=== PATIENT | male | born 1970 | race Caucasian/White ===

== ENCOUNTER 2017-07-18 12:30 | Emergency (ER) | payer SELFPAY ==
[2017-07-18] MEDS ORDERED: TORAdol 30 mg Injection IM ONE (12:53)
[2017-07-18] MEDS ORDERED: Phenergan 25 MG INJ IM ONE (12:54)
[2017-07-18] MEDS ORDERED: MORPHINE SULFATE 4 MG INJ IM ONE (12:54)
[2017-07-18] MEDS ORDERED: Phenergan 25 MG INJ ONE (12:59)
[2017-07-18] MEDS ORDERED: TORAdol 30 mg Injection ONE (12:59)
[2017-07-18] MEDS ORDERED: MORPHINE SULFATE 4 MG INJ ONE (12:59)
--- NOTE | 2017-07-18 13:05 | ERPHSYRPT ---
- History of Present Illness Time Seen by Provider: 07/18/17 12:40 Historian: patient Exam Limitations: clinical condition Patient Subjective Stated Complaint: pain to left lateral rib area and into left side of back since last night. 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 Triage Nursing Assessment: ambulated to room without difficulty. skin w/d, color normal, resp easy. tender left lateral ribs. no swelling noted Physician History: PATIENT COMPLAINS OF PAIN OVER THE LEFT LATERAL POSTERIOR RIBS ADJACENT TO HIS ARM PIT ONSET WHILE PUSHING DOWN AND LIFTING A LEVER OF SEMI-DUMP TRUCK. NOW HAS PAIN UPON LIFTING HIS LEFT ARM. DENIES DYSPNEA, DIAPHORESIS OR PALPITATIONS. Timing/Duration: yesterday Activities at Onset: activity Quality: sharpness Location: other (LEFT LATERAL RIBS AND BACK) Chest Pain Radiation: no radiation Severity of Pain-Max: moderate Severity of Pain-Current: moderate Modifying Factors: Improves With: change in position, other (AND MOVEMENT OF ARM ) Associated Symptoms: other (PAIN UPON MOTION OF TORSO AND MOTION OF LEFT ARM) Prior Chest Pain/Cardiac Workup: no prior chest pain Nitro Today/Relief: no nitro taken today Aspirin Treatment Today: no aspirin today Allergies/Adverse Reactions: Penicillins Allergy (Severe, Verified 07/18/17 12:49) Difficulty Breathing Hx Tetanus, Diphtheria Vaccination/Date Given: Yes Hx Influenza Vaccination/Date Given: No Hx Pneumococcal Vaccination/Date Given: No - Review of Systems Constitutional: No Fever, No Chills Eyes: No Symptoms Ears, Nose, & Throat: No Symptoms Respiratory: No Cough, No Dyspnea Cardiac: Chest Pain Abdominal/Gastrointestinal: No Abdominal Pain, No Nausea, No Vomiting, No Diarrhea Genitourinary Symptoms: No Dysuria Musculoskeletal: No Symptoms, No Back Pain, No Neck Pain - Past Medical History Pertinent Past Medical History: Yes Neurological History: Seizures ENT History: No Pertinent History Cardiac History: Hypertension Respiratory History: No Pertinent History Endocrine Medical History: No Pertinent History Musculoskeletal History: Other GI Medical History: GERD History: No Pertinent History Psycho-Social History: Anxiety, Bipolar, Depression, Other Male Reproductive Disorders: No Pertinent History Other Medical History: lt thumb, 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 - Past Surgical History Past Surgical History: Yes Neuro Surgical History: No Pertinent History Cardiac: No Pertinent History Respiratory: No Pertinent History Gastrointestinal: No Pertinent History Genitourinary: No Pertinent History Musculoskeletal: Amputation Male Surgical History: No Pertinent History Other Surgical History: LEFT HAND PARTIAL AMPUTATION - Social History Smoking Status: Never smoker How long have you smoked: 30 Exposure to second hand smoke: No Drug Use: none Patient Lives Alone: No - Nursing Vital Signs Nursing Vital Signs: Initial Vital Signs Temperature 97.5 F 07/18/17 12:38 Pulse Rate 53 L 07/18/17 12:38 Respiratory Rate 16 07/18/17 12:38 Blood Pressure 128/63 07/18/17 12:38 O2 Sat by Pulse Oximetry 98 07/18/17 12:38 Pain Scale Pain Intensity [Left Back] 8 Pain Intensity 8 - Physical Exam General Appearance: no apparent distress, alert Eye Exam: PERRL/EOMI, eyes nml inspection Ears, Nose, Throat Exam: normal ENT inspection Neck Exam: normal inspection, non-tender, supple, full range of motion Respiratory Exam: normal breath sounds, chest tenderness (MARKED TENDERNESS LEFT LATERAL TO POSTERIOR RIBS 4TH TO 8TH ), lungs clear, other (ONSET OF CHEST WALL PAIN UPON MOTION OF LEFT ARM), No respiratory distress Cardiovascular Exam: regular rate/rhythm Back Exam: normal inspection, No CVA tenderness, No vertebral tenderness Extremity Exam: normal inspection, normal range of motion SpO2: 98 Oxygen Delivery: Room Air - Radiology Exams Chest X-ray Interpretation: Discussed w/ radiologist, Negative Ordered Tests: Active Orders 24 hr Category Date Time Status CHEST 2 VIEWS (PA AND LAT) Stat Exams 07/18/17 12:52 Completed Medication Summary Discontinued Medications Generic Name Dose Route Start Last Admin Trade Name Morena PRN Reason Stop Dose Admin Ketorolac Tromethamine 60 mg 07/18/17 12:53 07/18/17 13:07 Toradol 30 Mg Injection IM 07/18/17 12:54 60 mg STAT ONE Administration Ketorolac Tromethamine Confirm 07/18/17 12:59 Toradol 30 Mg Injection Administered 07/18/17 13:00 Dose 60 mg .ROUTE .STK-MED ONE Morphine Sulfate 4 mg 07/18/17 12:54 07/18/17 13:08 Morphine Sulfate 4 Mg Inj IM 07/18/17 12:55 4 mg STAT ONE Administration Morphine Sulfate Confirm 07/18/17 12:59 Morphine Sulfate 4 Mg Inj Administered 07/18/17 13:00 Dose 4 mg .ROUTE .STK-MED ONE Promethazine HCl 25 mg 07/18/17 12:54 07/18/17 13:07 Phenergan 25 Mg Inj IM 07/18/17 12:55 25 mg STAT ONE Administration Promethazine HCl Confirm 07/18/17 12:59 Phenergan 25 Mg Inj Administered 07/18/17 13:00 Dose 25 mg .ROUTE .STK-MED ONE - Progress Progress: improved Progress Note: 07/18/17 13:09 TORADOL 60MG IM/ MORPHINE 4MG/ PHENERGAN 25MG IM Counseled pt/family regarding: lab results, rad results - Departure Time of Disposition: 13:40 Departure Disposition: Home Clinical Impression: LEFT CHEST WALL STRAIN Condition: Stable Critical Care Time: No Referrals: STACEY GARRISON MD [Primary Care Provider] - Additional Instructions: REMAIN OFF WORK UNTIL 07/22/2017. NORFLEX 100MG EVERY 12 HOURS FOR MUSCLE SPASM AND TORADOL 10MG EVERY 6 HOURS NEEDED FOR PAIN. CONSULT YOUR PRIMARY CARE PROVIDER FOR EVALUATION IN 1 WEEK. Prescriptions: Ketorolac Tromethamine [Toradol] 10 mg PO Q6HPRN PRN #20 tablet PRN Reason: Pain Orphenadrine Citrate 100 mg [Norflex 100 MG Tablet] 100 mg PO BID PRN #10 tab PRN Reason: Muscle Spasms
--- NOTE | 2017-07-18 13:15 | XRAY ---
Indication: Left chest wall pain. No known injury. Comparison: January 12, 2016. PA/lateral chest again hyperinflated with scattered calcified granulomas. Remaining lungs clear. Heart is not enlarged. Vascularity normal. Bony thorax intact again with mild degenerative changes. Impression: Stable nonacute chest with chronic features.
[2017-07-18 13:53] VITALS: BP 123/82; PULSE 79; O2SAT 97
== END 2017-07-18 13:53 | disposition home or self-care (01) ==
LOC: ED 12:30
DX: S29.011A Strain of muscle and tendon of front wall of thorax, initial encounter (principal); X50.0XXA Overexertion from strenuous movement or load, initial encounter
CPT/HCPCS: 71046; 96372; 99284; J1885; J2270; J2550

== ENCOUNTER 2017-12-08 00:20 | Observation (INO) | payer SELFPAY ==
[2017-12-08] MEDS ORDERED: Nitrostat 0.4 MG (ED) SL ONE ×2 (00:53→00:59)
[2017-12-08] MEDS ORDERED: BABY ASPIRIN 81 MG CHEW PO ONE (00:53)
[2017-12-08] MEDS ORDERED: BABY ASPIRIN 81 MG CHEW ONE (00:59)
--- NOTE | 2017-12-08 00:59 | ERPHSYRPT ---
- History of Present Illness Time Seen by Provider: 12/08/17 00:53 Historian: patient, family Exam Limitations: no limitations Patient Subjective Stated Complaint: pt states he has been having dizziness and pain in his lt shoulder radiating into his back. rates pain at 5/10 Triage Nursing Assessment: pt alert and oriented. answers questions approp. pt ambulatory with steady gait noted. respirations nonlabored with lungs cta. ski pink warm and dry. pupils equal and reactive. bilat upper and lower ext strength wnl and equal. no facial droop noted. Physician History: dizziness and chest pain radiating to left arm - but also with reproducible pain when palpating these areas; prior hx CT angio 10 years ago not requiring stneting but did get NTG just in case afterwards. positive family hx - neg stress test 4 years ago Timing/Duration: today Activities at Onset: activity Quality: fullness, pressure, tightness Location: substernal Chest Pain Radiation: arm Severity of Pain-Max: moderate Severity of Pain-Current: moderate Modifying Factors: Improves With: nothing Associated Symptoms: headache, dizziness Prior Chest Pain/Cardiac Workup: stress test (4 years ago) Nitro Today/Relief: 0.4 mg x 1, provided by ED, no relief Aspirin Treatment Today: 81 mg x 4, provided by ED Allergies/Adverse Reactions: Penicillins Allergy (Severe, Verified 12/08/17 00:38) Difficulty Breathing Home Medications: No Reportable Medications [No Reported Medications] 12/08/17 [History] Hx Tetanus, Diphtheria Vaccination/Date Given: Yes Hx Influenza Vaccination/Date Given: No Hx Pneumococcal Vaccination/Date Given: No Immunizations Up to Date: Yes - Review of Systems Constitutional: No Fever, No Chills Eyes: No Symptoms Ears, Nose, & Throat: No Symptoms Respiratory: No Cough, No Dyspnea Cardiac: Chest Pain, No Edema, No Syncope Abdominal/Gastrointestinal: No Abdominal Pain, No Nausea, No Vomiting, No Diarrhea Genitourinary Symptoms: No Dysuria Musculoskeletal: No Back Pain, No Neck Pain Skin: No Rash Neurological: No Dizziness, No Focal Weakness, No Sensory Changes Psychological: No Symptoms Endocrine: No Symptoms All Other Systems: Reviewed and Negative - Past Medical History Pertinent Past Medical History: Yes Neurological History: Seizures ENT History: No Pertinent History Cardiac History: Hypertension Respiratory History: No Pertinent History Endocrine Medical History: No Pertinent History Musculoskeletal History: Other GI Medical History: GERD History: No Pertinent History Psycho-Social History: Anxiety, Bipolar, Depression, Other Male Reproductive Disorders: No Pertinent History Other Medical History: lt thumb, 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 - Past Surgical History Past Surgical History: Yes Neuro Surgical History: No Pertinent History Cardiac: No Pertinent History Respiratory: No Pertinent History Gastrointestinal: No Pertinent History Genitourinary: No Pertinent History Musculoskeletal: Amputation Male Surgical History: No Pertinent History Other Surgical History: LEFT HAND PARTIAL AMPUTATION - Social History Smoking Status: Never smoker How long have you smoked: 30 Exposure to second hand smoke: No Drug Use: none Patient Lives Alone: No - Nursing Vital Signs Nursing Vital Signs: Initial Vital Signs Temperature 97.7 F 12/08/17 00:25 Pulse Rate 50 L 12/08/17 00:25 Respiratory Rate 18 12/08/17 00:25 Blood Pressure 144/88 12/08/17 00:25 O2 Sat by Pulse Oximetry 100 12/08/17 00:25 Pain Scale Pain Intensity 5 - Physical Exam General Appearance: no apparent distress, alert Eye Exam: PERRL/EOMI, eyes nml inspection Ears, Nose, Throat Exam: normal ENT inspection, moist mucous membranes Neck Exam: normal inspection, non-tender, supple, full range of motion Respiratory Exam: normal breath sounds, lungs clear, No respiratory distress Cardiovascular Exam: regular rate/rhythm, normal heart sounds Gastrointestinal/Abdomen Exam: soft, No tenderness, No mass Back Exam: normal inspection, No CVA tenderness, No vertebral tenderness Extremity Exam: normal inspection, normal range of motion Neurologic Exam: alert, oriented x 3, cooperative, normal mood/affect, sensation nml, No motor deficits Skin Exam: normal color, warm, dry SpO2 Interpretation: normal SpO2: 100 Oxygen Delivery: Room Air - Course Nursing assessment & vital signs reviewed: Yes EKG Interpreted by Me: Sinus Lionel, NORMAL AXIS, NORMAL INTERVALS, NORMAL QRS, Non-specific ST Changes - Radiology Exams Chest X-ray Interpretation: Reviewed by me, Other (appears negative) Ordered Tests: Active Orders 24 hr Category Date Time Status Cashier Manager STAT Care 12/08/17 00:55 Active EKG-ER Only STAT Care 12/08/17 00:53 Active IV Insertion STAT Care 12/08/17 00:53 Active Pulse Oximetry (ED) STAT Care 12/08/17 00:53 Active CHEST 1 VIEW (PORTABLE) Stat Exams 12/08/17 00:54 Taken AMYLASE Stat Lab 12/08/17 01:00 Results CBC W DIFF Stat Lab 12/08/17 01:00 Completed CK-Creatinine Phosphokinase Stat Lab 12/08/17 01:00 Results CMP Stat Lab 12/08/17 01:00 Results LIPASE Stat Lab 12/08/17 01:00 Results Lactic Acid Stat Lab 12/08/17 00:53 Completed NT PRO BNP Stat Lab 12/08/17 01:00 Results TROPONIN Q3H Lab 12/08/17 01:00 Completed TROPONIN Q3H Lab 12/08/17 04:00 Ordered TROPONIN Q3H Lab 12/08/17 07:00 Ordered TROPONIN Q3H Lab 12/08/17 10:00 Ordered TROPONIN Q3H Lab 12/08/17 13:00 Ordered VENOUS BLOOD GAS Stat Lab 12/08/17 00:53 Completed Medication Summary Generic Name Dose Route Start Last Admin Trade Name Freq PRN Reason Stop Dose Admin Sodium Chloride 1,000 mls @ 100 mls/hr 12/08/17 01:00 12/08/17 01:10 Sodium Chloride 0.9% 1000 Ml IV 01/07/18 00:59 100 mls/hr .Q10H VILLA Administration Discontinued Medications Generic Name Dose Route Start Last Admin Trade Name Freq PRN Reason Stop Dose Admin Aspirin 324 mg 12/08/17 00:53 12/08/17 01:09 Baby Aspirin 81 Mg Chew PO 12/08/17 00:54 324 mg STAT ONE Administration Aspirin Confirm 12/08/17 00:59 Baby Aspirin 81 Mg Chew Administered 12/08/17 01:00 Dose 324 mg .ROUTE .STK-MED ONE Nitroglycerin 0.4 mg 12/08/17 00:53 12/08/17 01:10 Nitrostat 0.4 Mg (Ed) SL 12/08/17 00:54 0.4 mg STAT ONE Administration Nitroglycerin Confirm 12/08/17 00:59 Nitrostat 0.4 Mg (Ed) Administered 12/08/17 01:00 Dose 0.4 mg SL .STK-MED ONE Lab/Rad Data: Laboratory Result Diagrams 12/08/17 01:00 12/08/17 01:00 Laboratory Results 12/08/17 12/08/17 12/08/17 Range/Units 01:00 01:00 01:00 WBC 7.1 (4.0-10.5) K/mm3 RBC 5.39 (4.1-5.6) M/mm3 Hgb 16.6 (12.5-18.0) gm/dl Hct 46.3 (42-50) % MCV 85.9 (78-100) fl MCH 30.8 (26-32) pg MCHC 35.9 (32-36) g/dl RDW 12.6 (11.5-14.0) % Plt Count 243 (150-450) K/mm3 MPV 11.8 H (6-9.5) fl Gran % 51.0 (36.0-66.0) % Eos # (Auto) 0.09 (0-0.5) Absolute Lymphs (auto) 2.90 (1.0-4.6) Absolute Monos (auto) 0.47 (0.0-1.3) Lymphocytes % 40.8 (24.0-44.0) % Monocytes % 6.6 (0.0-12.0) % Eosinophils % 1.3 (0.00-5.0) % Basophils % 0.3 (0.0-0.4) % Absolute Granulocytes 3.62 (1.4-6.9) Basophils # 0.02 (0-0.4) pO2/FiO2 Ratio % VBG pH (7.32-7.42) VBG pCO2 at Pat Temp (42-55) mm/Hg VBG pO2 at Pat Temp (25-40) mm/Hg VBG HCO3 (22-28) meq/L VBG O2 Sat (Earnestine) (95-100) VBG Base Excess (-2.0-2.0) VBG Hemoglobin VBG Carboxyhemoglobin (0.0-6.9) % T HGB POC Potassium (3.5-5.1) Sodium 142 (137-145) mmol/L Potassium 4.0 (3.5-5.1) mmol/L Chloride 103 (98-107) mmol/L Carbon Dioxide 26 (22-30) mmol/L Anion Gap 15.7 H (5-15) MEQ/L BUN 14 (9-20) mg/dL Creatinine 0.96 (0.66-1.25) mg/dL Estimated GFR > 60.0 ML/MIN Glucose 97 (74-106) mg/dL Lactic Acid (0.4-2.0) Calcium 9.7 (8.4-10.2) mg/dL Total Bilirubin 0.70 (0.2-1.3) mg/dL AST 24 (17-59) U/L ALT 16 (0-50) U/L Alkaline Phosphatase 73 (38-126) U/L Creatine Kinase 76 (55-170) U/L Troponin I < 0.012 (0.000-0.034) ng/mL NT-Pro-B Natriuret Pep Pending Serum Total Protein 7.8 (6.3-8.2) g/dL Albumin 4.7 (3.5-5.0) g/dL Amylase 77 (30-110) U/L Lipase 71 (23-300) U/L 12/08/17 12/08/17 Range/Units 00:53 00:53 WBC (4.0-10.5) K/mm3 RBC (4.1-5.6) M/mm3 Hgb (12.5-18.0) gm/dl Hct (42-50) % MCV (78-100) fl MCH (26-32) pg MCHC (32-36) g/dl RDW (11.5-14.0) % Plt Count (150-450) K/mm3 MPV (6-9.5) fl Gran % (36.0-66.0) % Eos # (Auto) (0-0.5) Absolute Lymphs (auto) (1.0-4.6) Absolute Monos (auto) (0.0-1.3) Lymphocytes % (24.0-44.0) % Monocytes % (0.0-12.0) % Eosinophils % (0.00-5.0) % Basophils % (0.0-0.4) % Absolute Granulocytes (1.4-6.9) Basophils # (0-0.4) pO2/FiO2 Ratio 21.0 % VBG pH 7.34 (7.32-7.42) VBG pCO2 at Pat Temp 55 (42-55) mm/Hg VBG pO2 at Pat Temp 24 L (25-40) mm/Hg VBG HCO3 29.7 H* (22-28) meq/L VBG O2 Sat (Earnestine) 43.9 L (95-100) VBG Base Excess 2.3 H (-2.0-2.0) VBG Hemoglobin 16.9 VBG Carboxyhemoglobin 2.5 (0.0-6.9) % T HGB POC Potassium 3.8 (3.5-5.1) Sodium (137-145) mmol/L Potassium (3.5-5.1) mmol/L Chloride (98-107) mmol/L Carbon Dioxide (22-30) mmol/L Anion Gap (5-15) MEQ/L BUN (9-20) mg/dL Creatinine (0.66-1.25) mg/dL Estimated GFR ML/MIN Glucose (74-106) mg/dL Lactic Acid 1.2 (0.4-2.0) Calcium (8.4-10.2) mg/dL Total Bilirubin (0.2-1.3) mg/dL AST (17-59) U/L ALT (0-50) U/L Alkaline Phosphatase (38-126) U/L Creatine Kinase (55-170) U/L Troponin I (0.000-0.034) ng/mL NT-Pro-B Natriuret Pep Serum Total Protein (6.3-8.2) g/dL Albumin (3.5-5.0) g/dL Amylase (30-110) U/L Lipase (23-300) U/L - Progress Progress: re-examined, unchanged Air Movement: good Progress Note: 12/08/17 02:32 discussed with pt and Dr bravo covering for Dr Garrison and all agree best for obs and following Trops Blood Culture(s) Obtained: No Antibiotics given: No Discussed with : Other (Dr Bravo) Will see patient in: hospital (observation) Counseled pt/family regarding: lab results, diagnosis, need for follow-up, rad results - Departure Time of Disposition: 02:33 Departure Disposition: Observation Clinical Impression: Chest pain Condition: Good Critical Care Time: No Referrals: STACEY GARRISON MD [Primary Care Provider] -
[2017-12-08] MEDS ORDERED: Sodium Chloride 0.9% 1000 ML 1,000 ML IV SCH (01:00)
[2017-12-08 01:11] LABS: BASOPHIL % 0.3 % (0.0-0.4); Basophil (Absolute #) 0.02 (0-0.4); Eosinophil % 1.3 % (0.00-5.0); Eosinophil (Absolute #) 0.09 (0-0.5); Granulocyte Absolute (ANC) 3.62 (1.4-6.9); Hematocrit 46.3 % (42-50); Hemoglobin 16.6 gm/dl (12.5-18.0); Lymphocytes % 40.8 % (24.0-44.0); Mean Cell Volume 85.9 fl (78-100); Mean Corpuscular Hemoglobin 30.8 pg (26-32); Mean Corpuscular Hgb Concent. 35.9 g/dl (32-36); Mean Platelet Volume 11.8 fl (6-9.5); Monocyte (Absolute #) 0.47 (0.0-1.3); Monocytes % 6.6 % (0.0-12.0); Platelet Count 243 K/mm3 (150-450); Red Blood Count 5.39 M/mm3 (4.1-5.6); Red Cell Distribution Width 12.6 % (11.5-14.0); White Blood Count 7.1 K/mm3 (4.0-10.5)
[2017-12-08 01:17] LABS: VBG BASE EXCESS 2.3 (-2.0-2.0); VBG CARBOXYHEMOGLOBIN 2.5 % T HGB (0.0-6.9); VBG HCO3- 29.7 meq/L (22-28); VBG HEMOGLOBIN 16.9; VBG O2 SATURATION 43.9 (95-100); VBG POTASSIUM 3.8 (3.5-5.1); VBG pH 7.34 (7.32-7.42)
[2017-12-08 01:32] LABS: ALBUMIN 4.7 g/dL (3.5-5.0); ALKALINE PHOSPHATASE 73 U/L (38-126); AMYLASE 77 U/L (30-110); ANION GAP 15.7 MEQ/L (5-15); BLOOD UREA NITROGEN 14 mg/dL (9-20); CHLORIDE 103 mmol/L (98-107); CK-Creatinine Phosphokinase 76 U/L (55-170); Calcium 9.7 mg/dL (8.4-10.2); Carbon Dioxide 26 mmol/L (22-30); Creatinine 1 0.96 mg/dL (0.66-1.25); Glucose 97 mg/dL (74-106); LIPASE 71 U/L (23-300); SGOT/AST 24 U/L (17-59); SGPT/ALT 16 U/L (0-50); SODIUM 142 mmol/L (137-145); Total Protein 7.8 g/dL (6.3-8.2)
[2017-12-08 02:33] LABS: NT PRO BNP 35.1 pg/mL (0-450)
[2017-12-08] MEDS ORDERED: NovoLIN R SQ PRN (03:15)
[2017-12-08] MEDS ORDERED: Senokot-S Tablet PO PRN (03:15)
[2017-12-08] MEDS ORDERED: MILK OF MAGNESIA 30 ML PO PRN (03:15)
[2017-12-08] MEDS ORDERED: MAALOX ES 30 ML UNIT DOSE PO PRN (03:15)
[2017-12-08] MEDS ORDERED: Zofran 4 MG/2 ML VIAL IV PRN (03:15)
[2017-12-08] MEDS ORDERED: TYLENOL 325 MG PO PRN (03:15)
[2017-12-08 04:26] LABS: Risk Ratio 4.4
--- NOTE | 2017-12-08 07:09 | XRAY ---
Indication: Chest pain and arm numbness. Comparison: July 18, 2017. Portable apical lordotic chest remains clear again with incidental calcified granulomas. Heart is not enlarged. Bony thorax intact again with mild degenerative changes. Impression: Stable nonacute chest with chronic features.
[2017-12-08] MEDS ORDERED: Ecotrin 325 MG PO SCH (10:00)
[2017-12-08 11:53] VITALS: BP 117/72; PULSE 45; O2SAT 98
--- NOTE | 2017-12-10 12:45 | HP ---
HISTORY OF PRESENT ILLNESS: A 47 year-old individual reportedly hospitalized with chief complaint of having dizziness at work place. He has no major medical history. He is not seeing a physician regularly. He denies any major health issues in the past. He does not take any medicine. 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 PAST MEDICAL HISTORY: Nothing significant. FAMILY HISTORY: Noncontributory. SOCIAL HISTORY: He denies smoking. Occasional alcohol. He does chew tobacco. REVIEW OF SYSTEMS: He denies any major health issues. He does have history of bradycardia in the past. No chest pain. No shortness of breath. He used to be a wrestler in the past. He denies any major health issues. GI: No constipation or diarrhea. EXTREMITIES: No edema. NEUROLOGIC: Intact. PHYSICAL EXAMINATION: Appears comfortable, not in any acute distress. His vital signs initial blood pressure 144/88, pulse 100, respiratory rate 16, temperature afebrile 97.7F. HEENT: Pupils reactive. NECK: No JVD. No thyromegaly. CHEST: Good air entry bilaterally. HEART: Normal. ABDOMEN: Soft, nontender. Bowel sounds present. EXTREMITIES: No edema. Pedal pulses present. NEUROLOGIC: Alert, awake with no focal deficit. LAB DATA AND TESTS: Troponin was negative. White blood cell 7.1, hemoglobin 16.6 and rest of the CBC was essentially negative. Sodium 142, potassium 4, chloride 103, BUN 14, creatinine 0.9. Glomerular filtration rate 1160. Glucose 97. Calcium 9.7. AST 24 ALT 16, alkaline phosphatase 73. CPK 76. BNP 35. Total protein 7.8. Albumin 4.7. Lactic acid 1.2. Troponins all sets were negative. Cholesterol was essentially okay at 154 with LDL of 99. CBC 7.34, pCO2 55. Venous sampling by ABG. Chest x-ray was negative. The patient appears clinically fine with slight episode of bradycardia initially that has straightened out at this time. ASSESSMENT AND PLAN: Dizziness, bradycardia advised some STAT CSF if troponins are negative. The patient will be followed for 24 hours to rule out, will be discharged home for outpatient follow up depending on thyroid results if need for any thyroid etiology for the patient's hypothyroidism. Therefore the patient's bradycardia if needed further testing will be done.
--- NOTE | 2017-12-10 12:47 | DS ---
DISCHARGE DIAGNOSES: 1) DIZZINESS. 2) BRADYCARDIA HAS BEEN KNOWN IN THE PAST OTHERWISE HAS BEEN CLINICALLY INSIGNIFICANT. NO OTHER CLINICAL SIGNIFICANT FINDING. HISTORY: The patient comes to hospital with chief complaint of having some dizziness and left side shoulder pain. HOSPITAL COURSE: The patient during the course of hospitalization was ruled out for myocardial infarction. He had some bradycardia which seems to have improved. No other deformities were found. The patient walked out in the hallway. All troponins were negative. Will get a thyroid test and if negative will be discharged home for outpatient follow up. The patient does need to follow with primary care physician before going back to work. Outpatient follow up is advised.
== END 2017-12-08 13:45 | disposition home or self-care (01) ==
LOC: ED 00:20 → MED SURG 03:05
PROVIDERS: ADMIT General Practice; ATTEND General Practice
DX: R42 Dizziness and giddiness (principal); R00.1 Bradycardia, unspecified
CPT/HCPCS: 36000; 36415; 71045; 80053; 80061; 82150; 82550; 82805; 83605; 83690; 83721; 83880; 84443; 84484; 85025; 93005; 93041; 93268; 96360; 96361; 99285; A9270-GY; G0378

== ENCOUNTER 2024-03-30 18:20 | Emergency (ER) | payer SELFPAY ==
--- NOTE | 2024-03-30 18:38 | ERPHSYRPT ---
- History of Present Illness Time Seen by Provider: 03/30/24 18:38 Source: patient Exam Limitations: no limitations Physician History: This is a 53-year-old white male patient of Dr. Garrison who excellently dropped a propane tank on his right foot at approximately 7:30 in the morning. Patient continued walking on it throughout the day and the pain became worse. Pain is primarily in the area of the first toe of the right foot. Occurred: this morning Quality: constant, aching, throbbing Severity of Pain-Max: moderate Severity of Pain-Current: moderate Lower Extremities Pain: foot: right, 1st toe: right Modifying Factors: Improves With: movement Associated Symptoms: other (Can bear weight but hurts to do so) Allergies/Adverse Reactions: Penicillins Allergy (Severe, Verified 03/30/24 18:55) Difficulty Breathing Hx Tetanus, Diphtheria Vaccination/Date Given: Yes Hx Influenza Vaccination/Date Given: No Hx Pneumococcal Vaccination/Date Given: No Travel Risk - International Travel Have you traveled outside of the country in past 3 weeks: No - Emerging Infectious Disease Are you exhibiting symptoms associated with any current EIDs: No - Review of Systems Constitutional: No Symptoms Eyes: No Symptoms Ears, Nose, & Throat: No Symptoms Respiratory: No Symptoms Cardiac: No Symptoms Abdominal/Gastrointestinal: No Symptoms Genitourinary Symptoms: No Symptoms Musculoskeletal: Injury (Right foot/first toe) Skin: No Symptoms Neurological: No Symptoms Psychological: No Symptoms Endocrine: No Symptoms Hematologic/Lymphatic: No Symptoms Immunological/Allergic: No Symptoms All Other Systems: Reviewed and Negative - Past Medical History Pertinent Past Medical History: Yes Neurological History: Seizures ENT History: No Pertinent History Cardiac History: Hypertension Respiratory History: No Pertinent History Endocrine Medical History: No Pertinent History Musculoskeletal History: Other GI Medical History: GERD History: No Pertinent History Psycho-Social History: Anxiety, Bipolar, Depression Male Reproductive Disorders: No Pertinent History Other Medical History: lt thumb, 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 - Past Surgical History Past Surgical History: Yes Neuro Surgical History: No Pertinent History Cardiac: No Pertinent History Respiratory: No Pertinent History Gastrointestinal: No Pertinent History Genitourinary: No Pertinent History Musculoskeletal: Amputation Male Surgical History: No Pertinent History Other Surgical History: LEFT HAND PARTIAL AMPUTATION - Social History Smoking Status: Never smoker How long have you smoked: 30 Exposure to second hand smoke: No Drug Use: none Patient Lives Alone: No - Nursing Vital Signs Nursing Vital Signs: Initial Vital Signs Temperature 98.2 F 03/30/24 18:50 Pulse Rate 70 03/30/24 18:50 Respiratory Rate 16 03/30/24 18:50 Blood Pressure 155/79 03/30/24 18:50 O2 Sat by Pulse Oximetry 99 03/30/24 18:50 Pain Scale Pain Intensity 6 - Physical Exam General Appearance: no apparent distress, alert, anxiety Eyes, Ears, Nose, Throat Exam: normal ENT inspection, moist mucous membranes Neck Exam: normal inspection, non-tender, supple, full range of motion Cardiovascular/Respiratory Exam: chest non-tender, no respiratory distress Gastrointestinal/Abdominal Exam: non-tender Back Exam: normal inspection, normal range of motion, No CVA tenderness, No vertebral tenderness Hips Exam: bilateral: non-tender, normal inspection, normal range of motion, no evidence of injury Legs Exam: bilateral leg: non-tender, normal inspection, normal range of motion, no evidence of injury Knees Exam: bilateral knee: non-tender, normal inspection, normal range of motion, no evidence of injury Ankle Exam: bilateral ankle: non-tender, normal inspection, normal range of motion, no evidence of injury Foot Exam: right foot: bone tenderness (First toe), soft tissue tenderness (First toe), swelling (First toe), left foot: non-tender, normal inspection, normal range of motion, no evidence of injury Neuro/Tendon Exam: normal sensation, normal motor functions, normal tendon functions, responds to pain, no evidence tendon injury Mental Status Exam: alert, oriented x 3, cooperative Skin Exam: normal color, warm, dry SpO2 Interpretation: normal O2 Delivery: Room Air - Course Nursing assessment & vital signs reviewed: Yes Ordered Tests: Active Orders 24 hr Category Date Time Status Splint STAT Care 03/30/24 19:38 Active FOOT (MINIMUM 3 VIEWS) Stat Exams 03/30/24 18:56 Taken Medication Summary Discontinued Medications Generic Name Dose Route Start Last Admin Trade Name Morena PRN Reason Stop Dose Admin Ibuprofen 600 mg 03/30/24 19:37 Ibuprofen 600 Mg Tablet PO 03/30/24 19:38 STAT ONE Oxycodone/Acetaminophen 1 tab 03/30/24 19:37 Oxycodone Hcl/Apap 5 Mg/325 Mg Tablet PO 03/30/24 19:38 STAT STA Oxycodone/Acetaminophen 2 tab 03/30/24 19:39 Oxycodone Hcl/Apap 5 Mg/325 Mg Tablet PO 03/30/24 19:40 SENT HOME W/ PATIENT STA - Progress Progress: improved, pain not gone completely, re-examined Progress Note: 03/30/24 19:43 My medical decision making and the assignment of low complexity to this patient's medical issue today is based on review the patient's past medical history, review the patient's medication list, review patient drug allergy list, history present illness and physical findings on examination. The workup in this patient includes x-ray of the patient's right foot. I interpreted the preliminary report of the patient's right foot x-ray. The pat ient has a right foot first digit proximal phalanx nondisplaced fracture Counseled pt/family regarding: diagnosis, need for follow-up, rad results Medical Desision Making - Diagnostic Testing Diagnostic test were ordered, analyzed, and reviewed by me: Yes Radiological Interpretation: Interpreted by me - Risk of complications The pt has a mod risk of morbidity or mortality based on: Need for prescription drug management - Departure Departure Disposition: Home Clinical Impression: Fracture of proximal phalanx of toe of right foot, Fracture of proximal phalanx of right great toe Condition: Stable Critical Care Time: No Referrals: STACEY GARRISON MD [Primary Care Provider] - Follow up/PCP as directed SONAM PASCUAL DPM [ACTIVE STAFF] - Follow up/PCP as directed Additional Instructions: Add ibuprofen 600 mg orally 3 times a day with food for 5 days. Call Sandeep Sánchez barrel bridge assembler, to schedule an outpatient appointment with him in the next 2 to 3 days. Call first thing on 03/31/2024. Ice bath 3 times a day for the next 3 to 5 days Prescriptions: Oxycodone HCl/Acetaminophen [Percocet 5-325 mg Tablet] 1 each PO Q8H PRN PRN #6 tablet MDD 3 PRN Reason: Moderate To Severe Pain
[2024-03-30 19:04] VITALS: BP 155/79; PULSE 70; RESP 16; TEMP 98.2; O2SAT 99
[2024-03-30] MEDS ORDERED: MOTRIN 600 MG ONE (19:43)
[2024-03-30] MEDS ORDERED: PERCOCET TABLET 5/325MG ONE (19:43)
[2024-03-30] MEDS: PERCOCET TABLET 5/325MG PO STA ×2 (19:44→20:10)
[2024-03-30] MEDS: MOTRIN 600 MG PO ONE (19:44)
--- NOTE | 2024-03-31 08:49 | XRAY ---
Indication: Pain and swelling following injury. Comparison: None 3 nonweightbearing views right foot demonstrates tiny heel spurs, tiny posterior ankle heterotopic ossification, and small navicular accessory ossicle. No acute bony, articular, or soft tissue abnormalities
== END 2024-03-30 20:11 | disposition home or self-care (01) ==
LOC: ED 18:20
DX: S92.414A Nondisplaced fracture of proximal phalanx of right great toe, initial encounter for closed fracture (principal); W20.8XXA Other cause of strike by thrown, projected or falling object, initial encounter; I10 Essential (primary) hypertension; Z79.891 Long term (current) use of opiate analgesic
CPT/HCPCS: 73630; 99283; A9270-GY